=== PATIENT | male | born 1970 | race Hispanic/Latino ===

== ENCOUNTER → 2018-09-01 | Day surgery (SDC) | payer MEDICARE, OTHER ==
[~2018-09-01] MED LIST: ACETAMINOPHEN650 M1 PO; BALANCED SALT SOLN (OPTH) 15 ML BTL IO ONE; CITALOPRAM HBR20 MG PO; FOLIC ACID1 MG PO; GABAPENTIN300 MG PO; HYDROCODONE/APAP 7.5MG-325MG 1 EA TAB ONE; LAMOTRIGINE100 MG PO; LIDOCAINE 2% /EPINEPHRINE 20 ML SDV INJ ONE; MELOXICAM7.5 MG PO; MIDAZOLAM HCL 2 MG/2 ML VIAL ONE; MITOMYCIN-PF OPTH SYRINGE 0.3 MG/ML OP ONE; MOXIFLOXACIN HCL(OPTH) 3 ML BTL OP ONE; NEOMYCIN/POLYMYXIN/DEX (OPTH) 3.5 GM TUBE ONE; OMEGA-31000 MG PO; PANTOPRAZOLE SO40 MG PO; POVIDONE IODINE 5% (OPTH) 30 ML BTL ONE
[2018-09-01 14:05] VITALS: BP 122/81
--- NOTE | 2018-09-15 22:02 | Operative Report ---
DATE OF PROCEDURE: 09/01/2018 SURGEON: Renan Rios MD PREOPERATIVE DIAGNOSIS: Large nasal pterygium, right eye. POSTOPERATIVE DIAGNOSIS: Large nasal pterygium, right eye. PROCEDURE: 1. Pterygium excision, right eye, nasal. 2. Amniotic membrane graft, right eye, nasal. 3. Superficial keratectomy, right eye, nasal. 4. Mitomycin-C 0.25 mg/mL, right eye, nasal 60 seconds. ANESTHESIA: MAC. COMPLICATIONS: None. DESCRIPTION OF PROCEDURE: The patient was taken to the operating room, where prepped and draped in the usual sterile ophthalmic way. A lid speculum was placed in the eye. A 6-0 sterile stay suture was placed in the limbus. The pterygium was localized and marked with a marking pen. 0.2 mL of lidocaine with epinephrine was injected into the pterygium. Once this was done, it was removed from the sclera and cornea using scissors. Once this was removed, it was sent to Pathology. Electrocautery was used to control the bleeding. Mitomycin was soaked in the cottonoid and placed at the edge of the conj for 60 seconds. It was then removed and copious amounts of BSS solution was used to irrigate this off. A bur was used to perform a superficial keratectomy and removed the residual debris from the cornea. The amniotic membrane measured 10 x 15 mm. It was secured using fibrin and thrombin glue. Excess glue and tissue were cut to size using Pedro Luis scissors. The patient had placed in the eye and was sent to the recovery room in good condition. Will be seen in my office tomorrow. The patient's serial number for the membrane is [id number]. MD JOSE E Acosta/MODL /[id number]
== END | disposition home or self-care (01) ==
LOC: OR 09:37
PROVIDERS: ATTEND Ophthalmology
DX: H11.051 Peripheral pterygium, progressive, right eye (principal); R41.3 Other amnesia; E78.5 Hyperlipidemia, unspecified; R53.1 Weakness; K21.9 Gastro-esophageal reflux disease without esophagitis; M25.571 Pain in right ankle and joints of right foot; E78.00 Pure hypercholesterolemia, unspecified; G81.12 Spastic hemiplegia affecting left dominant side; F17.290 Nicotine dependence, other tobacco product, uncomplicated; Z51.81 Encounter for therapeutic drug level monitoring; Z86.69 Personal history of other diseases of the nervous system and sense organs
CPT/HCPCS: 65426; 88304; J2001; J2250; J7315; V2790

== ENCOUNTER → 2025-04-23 | Outpatient (REF) | payer MEDICARE, OTHER ==
[~2025-04-23] MED LIST changes: +B12 ACTIVE1000 MCG PO; -BALANCED SALT SOLN (OPTH) 15 ML BTL IO ONE; +CALCIUM ACETAT667 MG PO; +COLLAGEN 15001 EACH PO; -HYDROCODONE/APAP 7.5MG-325MG 1 EA TAB ONE; -LIDOCAINE 2% /EPINEPHRINE 20 ML SDV INJ ONE; -MIDAZOLAM HCL 2 MG/2 ML VIAL ONE; -MITOMYCIN-PF OPTH SYRINGE 0.3 MG/ML OP ONE; -MOXIFLOXACIN HCL(OPTH) 3 ML BTL OP ONE; +NASAL SPRAY30 M1; -NEOMYCIN/POLYMYXIN/DEX (OPTH) 3.5 GM TUBE ONE; +OMEPRAZOLE40 MG PO; -POVIDONE IODINE 5% (OPTH) 30 ML BTL ONE; +PRAVASTATIN SOD40 MG PO; +VITAMIN C500 MG PO; +VITAMIN D3 COM1 EACH PO
== END ==
LOC: US 08:24
PROVIDERS: ATTEND Nurse Practitioner
DX: R10.10 Upper abdominal pain, unspecified (principal)
CPT/HCPCS: 76700

== ENCOUNTER → 2025-05-03 | Day surgery (SDC) | payer MEDICARE, OTHER ==
[~2025-05-03] MED LIST changes: +GLUCAGON FOR INJ 1 MG VIAL ONE; +HYOSCYAMINE SULFATE 0.5 MG/ML INJ ONE; +LIDOCAINE HCL 2% LOCAL INJ 5 ML SDV VIAL INJ ONE; +METOCLOPRAMIDE HCL 10 MG/2ML VIAL ONE; +PROPOFOL IV EMULSION 10 MG/ML 20 ML VIAL ONE; +PROPOFOL IV EMULSION 50 ML IV ONE
[2025-05-03] MEDS: LACTATED RINGER'S 1,000 ML ONE (09:58)
[2025-05-03 11:24] LABS: CDIFF AG QUIK CHEK NEGATIVE (NEGATIVE); CDIFF TOX QUIK CHEK NEGATIVE (NEGATIVE)
[2025-05-03 11:30] VITALS: BP 103/62; PULSE 67; RESP 17; TEMP 97.6; O2SAT 97
== END | disposition home or self-care (01) ==
LOC: OR 07:35
PROVIDERS: ATTEND Internal Medicine Gastroenterology
DX: K21.9 Gastro-esophageal reflux disease without esophagitis (principal); D12.3 Benign neoplasm of transverse colon; D12.4 Benign neoplasm of descending colon; K29.00 Acute gastritis without bleeding; K29.50 Unspecified chronic gastritis without bleeding; K52.9 Noninfective gastroenteritis and colitis, unspecified; K31.89 Other diseases of stomach and duodenum; K62.89 Other specified diseases of anus and rectum; K64.8 Other hemorrhoids; Z71.3 Dietary counseling and surveillance; R63.4 Abnormal weight loss; G40.909 Epilepsy, unspecified, not intractable, without status epilepticus; Z71.89 Other specified counseling; E78.5 Hyperlipidemia, unspecified; F32.A Depression, unspecified; F17.210 Nicotine dependence, cigarettes, uncomplicated; Z01.810 Encounter for preprocedural cardiovascular examination; Z79.1 Long term (current) use of non-steroidal anti-inflammatories (NSAID); Z79.899 Other long term (current) drug therapy; Z91.81 History of falling
CPT/HCPCS: 43239; 45378; 45380; 45385; 83630; 83993; 87045; 87177; 87324; 87328; 87449; 93005; J1610; J1980; J2003; J2470; J2765